=== PATIENT | male | born 1975 | race Caucasian/White ===

== ENCOUNTER 2016-08-20 10:36 | Emergency (ER) | payer BC ==
[2016-08-20] MEDS ORDERED: Aspirin 81 MG Tab.Chew PO ONE (10:40)
[2016-08-20] MEDS ORDERED: Sodium Chloride 0.9% 1,000 ML IV SCH (10:45)
[2016-08-20] MEDS ORDERED: Sodium Chloride 0.9% 10 ML Syringe FLUSH PRN (10:50)
--- NOTE | 2016-08-20 10:55 | EDM.PDOC ---
ED HPI GENERAL MEDICAL PROBLEM - General Chief Complaint: Chest Pain Stated Complaint: CHEST PAIN Time Seen by Provider: 08/20/16 10:36 Source of Information: Reports: Patient History Limitations: Reports: No Limitations - History of Present Illness INITIAL COMMENTS - FREE TEXT/NARRATIVE: 40 years old w m with a h/o anxiety, ECG with RBBB, came to the ed due of sudden onset of left ant chest pain while at work. No trauma, no diaphoresis, SOB, no cardiac risk factors. BP 123/87, pulse 67, No pain if he hold the breath. Pain starts if he takes a deep breath or moves his upper body against his lower body. 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 Pt denies any other acuter medical issues. Onset: Today, Sudden Onset Date: 08/20/16 Onset Time: 09:00 Duration: Minutes: Location: Reports: Chest Quality: Reports: Burning, Dull Severity: Moderate Improves with: Reports: Movement Worsens with: Reports: Movement Associated Symptoms: Reports: Chest Pain (with chest movement) Left Chest Pain Score (Numeric/FACES): 10 - Related Data Allergies Allergy/AdvReac Type Severity Reaction Status Date / Time Penicillins Allergy Wheezing Verified 08/20/16 10:56 Home Meds: Home Meds NK [No Known Home Meds] 08/20/16 [History] ED ROS GENERAL - Review of Systems Review Of Systems: See Below Constitutional: Reports: No Symptoms HEENT: Reports: No Symptoms Respiratory: Reports: No Symptoms Cardiovascular: Reports: Chest Pain Endocrine: Reports: No Symptoms GI/Abdominal: Reports: No Symptoms : Reports: No Symptoms Musculoskeletal: Reports: No Symptoms Skin: Reports: No Symptoms Neurological: Reports: No Symptoms Psychiatric: Reports: No Symptoms Hematologic/Lymphatic: Reports: No Symptoms Immunologic: Reports: No Symptoms ED EXAM, GENERAL - Physical Exam Exam: See Below Exam Limited By: No Limitations General Appearance: Alert, WD/WN, Anxious, Mild Distress Eye Exam: Bilateral Eye: Normal Inspection Ears: Normal External Exam Ear Exam: Bilateral Ear: Auricle Normal Nose: Normal Inspection, Normal Mucosa Throat/Mouth: Normal Inspection, Normal Lips, Normal Teeth Head: Atraumatic, Normocephalic Neck: Normal Inspection, Supple, Non-Tender Respiratory/Chest: No Respiratory Distress, Lungs Clear, Normal Breath Sounds, Other (tender chat wall) Cardiovascular: Normal Peripheral Pulses, Regular Rate, Rhythm, No Edema, No Gallop Peripheral Pulses: 2+: Femoral (L), Femoral (R) GI/Abdominal: Normal Bowel Sounds, Soft (Male) Exam: Deferred Rectal (Males) Exam: Deferred Back Exam: Normal Inspection, Full Range of Motion Extremities: Normal Inspection, Normal Range of Motion, Non-Tender Neurological: Alert, Oriented, CN II-XII Intact, Normal Cognition, Normal Gait Psychiatric: Normal Affect, Normal Mood Skin Exam: Warm, Dry, Intact, Normal Color, No Rash Lymphatic: No Adenopathy EKG INTERPRETATION EKG Date: 08/20/16 Time: 10:40 Rhythm: NSR Rate (Beats/Min): 77 [place]: Normal P-Wave: Present QRS: Normal ST-T: Normal QT: Normal Comparison: NA - No Prior EKG EKG Interpretation Comments: known RBBB since age 17 Course - Vital Signs Text/Narrative:: 40 years old w m with a h/o anxiety, ECG with RBBB, came to the ed due of sudden onset of left ant chest pain while at work. No trauma, no diaphoresis, SOB, no cardiac risk factors. BP 123/87, pulse 67, No pain if he hold the breath. Pain starts if he takes a deep breath or moves his upper body against his lower body. 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 Pt denies any other acuter medical issues. ASA was given as the pt arrived here in the ed PE: healthy appearing 40 years old w m. Imaging: CXR NAD Labs; Cariac W/W, D dimer Neg Impression: Atypical CP. Pleurisy Tx: ASA and NTG initially. Reexam: Pain free an d/c Plan: D/C with instructions. Last Recorded V/S: Last Vital Signs Temp 36.6 C 08/20/16 11:18 Pulse 71 08/20/16 11:18 Resp 14 08/20/16 11:18 BP 134/75 08/20/16 11:18 Pulse Ox 99 08/20/16 11:18 - Orders/Labs/Meds Orders: Active Orders 24 hr Category Date Time Status Chest 2V [CR] Stat Exams 08/20/16 10:44 Taken Saline Lock Insert [OM.PC] Routine Oth 08/20/16 10:50 Ordered EKG 12 Lead [EK] Routine Ther 06/27/17 10:43 Ordered Labs: Laboratory Tests 08/20/16 08/20/16 08/20/16 Range/Units 11:05 11:05 11:05 WBC 7.2 (4.5-12.0) X10-3/uL RBC 5.04 (4.30-5.75) x10(6)uL Hgb 15.0 (11.5-15.5) g/dL Hct 43.2 (30.0-51.3) % MCV 85.7 (80-96) fL MCH 29.7 (27.7-33.6) pg MCHC 34.7 (32.2-35.4) g/dL RDW 12.8 (11.5-15.5) % Plt Count 255 (125-369) X10(3)uL MPV 9.1 (7.4-10.4) fL Neut % (Auto) 71.7 (46-82) % Lymph % (Auto) 20.5 (13-37) % [place] % (Auto) 5.8 (4-12) % Eos % (Auto) 2 (1.0-5.0) % Baso % (Auto) 1 (0-2) % Neut # (Auto) 5.2 (1.6-8.3) # Lymph # (Auto) 1.5 (0.6-5.0) # [place] # (Auto) 0.4 (0.0-1.3) # Eos # (Auto) 0.1 (0.0-0.8) # Baso # (Auto) 0.0 (0.0-0.2) # PT 10.5 (8.7-11.1) INR 1.04 (0.89-1.13) D-Dimer, Quantitative < 100 L (100-400) ng/mL Sodium (135-145) mmol/L Potassium (3.5-5.3) mmol/L Chloride (100-110) mmol/L Carbon Dioxide (23-29) mmol/L BUN (5-20) mg/dL Creatinine (0.6-1.3) mg/dL Est Cr Clr Drug Dosing mL/min Estimated GFR (MDRD) (>60) BUN/Creatinine Ratio (9-20) Glucose (80-116) mg/dL Calcium (8.6-10.2) mg/dL Creatine Kinase (60-160) IU/L Troponin I (0.02-0.06) NG/ML Urine Opiates Screen (NEGATIVE) Ur Oxycodone Screen (NEGATIVE) Ur Propoxyphene Screen (NEGATIVE) Ur Barbituates Screen (NEGATIVE) Ur Tricyclics Screen (NEGATIVE) Ur Phencyclidine Scrn (NEGATIVE) Ur Amphetamine Screen (NEGATIVE) Urine MDMA Screen (NEGATIVE) U Benzodiazepines Scrn (NEGATIVE) U Cocaine Metab Screen (NEGATIVE) U Marijuana (THC) Screen (NEGATIVE) 08/20/16 08/20/16 08/20/16 Range/Units 11:05 11:05 11:05 WBC (4.5-12.0) X10-3/uL RBC (4.30-5.75) x10(6)uL Hgb (11.5-15.5) g/dL Hct (30.0-51.3) % MCV (80-96) fL MCH (27.7-33.6) pg MCHC (32.2-35.4) g/dL RDW (11.5-15.5) % Plt Count (125-369) X10(3)uL MPV (7.4-10.4) fL Neut % (Auto) (46-82) % Lymph % (Auto) (13-37) % [place] % (Auto) (4-12) % Eos % (Auto) (1.0-5.0) % Baso % (Auto) (0-2) % Neut # (Auto) (1.6-8.3) # Lymph # (Auto) (0.6-5.0) # [place] # (Auto) (0.0-1.3) # Eos # (Auto) (0.0-0.8) # Baso # (Auto) (0.0-0.2) # PT (8.7-11.1) INR (0.89-1.13) D-Dimer, Quantitative (100-400) ng/mL Sodium 138 (135-145) mmol/L Potassium 3.6 (3.5-5.3) mmol/L Chloride 99 L (100-110) mmol/L Carbon Dioxide 29 (23-29) mmol/L BUN 16 (5-20) mg/dL Creatinine 1.0 (0.6-1.3) mg/dL Est Cr Clr Drug Dosing 95.95 mL/min Estimated GFR (MDRD) > 60 (>60) BUN/Creatinine Ratio 16.0 (9-20) Glucose 92 (80-116) mg/dL Calcium 9.8 (8.6-10.2) mg/dL Creatine Kinase 101 (60-160) IU/L Troponin I (0.02-0.06) NG/ML Urine Opiates Screen Negative (NEGATIVE) Ur Oxycodone Screen Negative (NEGATIVE) Ur Propoxyphene Screen Negative (NEGATIVE) Ur Barbituates Screen Negative (NEGATIVE) Ur Tricyclics Screen Negative (NEGATIVE) Ur Phencyclidine Scrn Negative (NEGATIVE) Ur Amphetamine Screen Negative (NEGATIVE) Urine MDMA Screen Negative (NEGATIVE) U Benzodiazepines Scrn Negative (NEGATIVE) U Cocaine Metab Screen Negative (NEGATIVE) U Marijuana (THC) Screen Negative (NEGATIVE) 08/20/16 Range/Units 11:05 WBC (4.5-12.0) X10-3/uL RBC (4.30-5.75) x10(6)uL Hgb (11.5-15.5) g/dL Hct (30.0-51.3) % MCV (80-96) fL MCH (27.7-33.6) pg MCHC (32.2-35.4) g/dL RDW (11.5-15.5) % Plt Count (125-369) X10(3)uL MPV (7.4-10.4) fL Neut % (Auto) (46-82) % Lymph % (Auto) (13-37) % [place] % (Auto) (4-12) % Eos % (Auto) (1.0-5.0) % Baso % (Auto) (0-2) % Neut # (Auto) (1.6-8.3) # Lymph # (Auto) (0.6-5.0) # [place] # (Auto) (0.0-1.3) # Eos # (Auto) (0.0-0.8) # Baso # (Auto) (0.0-0.2) # PT (8.7-11.1) INR (0.89-1.13) D-Dimer, Quantitative (100-400) ng/mL Sodium (135-145) mmol/L Potassium (3.5-5.3) mmol/L Chloride (100-110) mmol/L Carbon Dioxide (23-29) mmol/L BUN (5-20) mg/dL Creatinine (0.6-1.3) mg/dL Est Cr Clr Drug Dosing mL/min Estimated GFR (MDRD) (>60) BUN/Creatinine Ratio (9-20) Glucose (80-116) mg/dL Calcium (8.6-10.2) mg/dL Creatine Kinase (60-160) IU/L Troponin I < 0.01 L (0.02-0.06) NG/ML Urine Opiates Screen (NEGATIVE) Ur Oxycodone Screen (NEGATIVE) Ur Propoxyphene Screen (NEGATIVE) Ur Barbituates Screen (NEGATIVE) Ur Tricyclics Screen (NEGATIVE) Ur Phencyclidine Scrn (NEGATIVE) Ur Amphetamine Screen (NEGATIVE) Urine MDMA Screen (NEGATIVE) U Benzodiazepines Scrn (NEGATIVE) U Cocaine Metab Screen (NEGATIVE) U Marijuana (THC) Screen (NEGATIVE) Meds: Medications Discontinued Medications Generic Name Dose Route Start Last Admin Trade Name Freq PRN Reason Stop Dose Admin Aspirin 324 mg 08/20/16 10:40 08/20/16 10:42 Aspirin PO 08/20/16 10:41 324 mg ONETIME ONE Administration Sodium Chloride 1,000 mls @ 125 mls/hr 08/20/16 10:45 08/20/16 12:18 Normal Saline IV 125 mls/hr ASDIRECTED EVONNE Administration Sodium Chloride 1,000 mls @ 999 mls/hr 08/20/16 10:58 08/20/16 11:13 Normal Saline IV 08/20/16 11:58 999 mls/hr .BOLUS ONE Administration Nitroglycerin 1 gm 08/20/16 10:58 08/20/16 11:10 Nitro-Bid 2% TOP 08/20/16 10:59 1 gm ONETIME ONE Administration Sodium Chloride 10 ml 08/20/16 10:50 Saline Flush FLUSH ASDIRECTED PRN Keep Vein Open Departure - Departure Time of Disposition: 13:44 Disposition: Home, Self-Care 01 Condition: Good Clinical Impression: Atypical chest pain, Pleurisy without effusion Instructions: Nonspecific Chest Pain Referrals: Anastacio Graham MD [Primary Care Provider] - Forms: ED Department Discharge Additional Instructions: Please take motrin ( with food) for pain, please f/u, please come back to the ed if your symptoms get worse acutely. - My Orders Last 24 Hours: My Active Orders 08/20/16 10:43 EKG 12 Lead [EK] Routine 08/20/16 10:44 Chest 2V [CR] Stat 08/20/16 10:50 Saline Lock Insert [OM.PC] Routine - Assessment/Plan Last 24 Hours: My Active Orders 08/20/16 10:43 EKG 12 Lead [EK] Routine 08/20/16 10:44 Chest 2V [CR] Stat 08/20/16 10:50 Saline Lock Insert [OM.PC] Routine
[2016-08-20] MEDS ORDERED: Nitroglycerin 2% Oint 1 GM UD Packet TOP ONE (10:58)
[2016-08-20] MEDS ORDERED: Sodium Chloride 0.9% 1,000 ML IV ONE (10:58)
[2016-08-20 11:20] VITALS: BP 134/75
--- NOTE | 2016-08-21 10:48 | CR ---
INDICATION: Chest pain. CHEST: PA and lateral views of the chest revealed the heart and mediastinum to be unremarkable. A very minimal dextroconvex scoliosis of the upper middle thoracic spine is noted. An active infiltrate or effusion was not seen. Overlying EKG leads are noted. IMPRESSION: No acute process. MTDD
== END 2016-08-20 13:55 | disposition home or self-care (01) ==
LOC: FB.ED 10:36
DX: R07.89 Other chest pain (principal); R09.1 Pleurisy; Z88.0 Allergy status to penicillin
CPT/HCPCS: 36415; 71020; 80048; 80305; 82550; 84484; 85025; 85379; 85610; 93005; 96360; 96361; 99285; A9270; J7040